=== PATIENT | female | born 1960 | race Caucasian/White ===

== ENCOUNTER 2018-09-02 05:03 | Inpatient (IN) ==
[2018-08-26 15:08] LABS: Appearance,Urine CLEAR; Bilirubin,Urine NEG (NEG); Color,Urine YELLOW; Glucose,Urine (UA) NEGATIVE (NEG); Leukocyte Esterase,Urine NEG /uL (NEG); Protein,Urine NEG (NEG); Specific Gravity,Urine 1.023 (1.000-1.035); Urine Blood NEG mg/dL (<0.03); Urobilinogen,Urine NEG (NEG)
[2018-08-26 15:42] LABS: Basophils # (Auto) 0 K/mcL (0.0-0.3); Basophils % (Auto) 0.5 % (0.0-2.0); Eosinophils # (Auto) 0 K/mcL (0.0-0.7); Eosinophils % (Auto) 0.5 % (0.0-7.0); Granulocytes % (Auto) 63.7 % (38.0-78.0); Lymphocytes # (Auto) 2.2 K/mcL (1.5-4.8); Lymphocytes % (Auto) 24.1 % (15.5-49.0); Mean Cell Volume 96.4 fL (80.0-100.0); Mean Corpuscular HGB Conc 32.3 g/dL (31.0-36.0); Monocytes % (Auto) 11.2 % (1.0-12.0); Platelet Count 287 K/mcL (140-440); RBC 4.68 M/mcL (4.00-5.20); Red Cell Distribution Width 12.6 % (11.5-14.5)
[2018-08-26 15:47] LABS: Blood Urea Nitrogen 16 mg/dl (6-20)
[2018-08-26 17:04] LABS: Estimated Average Glucose(eAG) 108 mg/dL; Hemoglobin A1C 5.4 % HGB (4.0-6.0)
[2018-09-02] MEDS ORDERED: PREGABALIN 75 MG CAPSULE PO SCH (07:00)
[2018-09-02] MEDS ORDERED: oxyCODONE 10 MG TAB.ER.12H PO SCH (07:00)
[2018-09-02] MEDS ORDERED: CELECOXIB 200 MG CAPSULE PO SCH (07:00)
[2018-09-02] MEDS ORDERED: ceFAZolin 2 GM in DEXTROSE 5% IN WATER 50 ML IV SCH (07:00)
[2018-09-02] MEDS ORDERED: HEPARIN 20,000 UNIT/ML VIAL IR ONE (07:08)
[2018-09-02] MEDS ORDERED: DEXAMETHASONE 4 MG/ML VIAL IV ONE (07:40)
[2018-09-02] MEDS ORDERED: PHENYLEPHRINE 10 MG/ML VIAL IV ONE (07:40)
[2018-09-02] MEDS ORDERED: PROPOFOL 200 MG/20 ML VIAL IV ONE (07:40)
[2018-09-02] MEDS ORDERED: LIDOCAINE HCL/PF 100 MG/5 ML SYRINGE IV ONE (07:40)
[2018-09-02] MEDS ORDERED: TRANEXAMIC ACID 1,000 MG/10 ML VIAL IV ONE (07:40)
[2018-09-02] MEDS ORDERED: ONDANSETRON 4 MG/2 ML VIAL IV ONE (07:40)
[2018-09-02] MEDS ORDERED: MIDAZOLAM 2 MG/2 ML VIAL IV ONE (07:40)
[2018-09-02] MEDS ORDERED: FLEETS ADULT ENEMA PR PRN (08:56)
[2018-09-02] MEDS ORDERED: MAGNESIUM HYDROXIDE 30 ML ORAL.SUSP PO PRN (08:56)
[2018-09-02] MEDS ORDERED: HYDROCODONE/APAP 7.5/325MG TABLET PO PRN (08:56)
[2018-09-02] MEDS ORDERED: BISACODYL 10 MG SUPP.RECT PR PRN (08:56)
[2018-09-02] MEDS ORDERED: TRANEXAMIC ACID 1,000 MG/10 ML VIAL IV SCH (08:56)
[2018-09-02] MEDS ORDERED: BENZOCAINE/MENTHOL 1 LOZENGE PO PRN ×2 (08:56→09:21)
[2018-09-02] MEDS ORDERED: KETOROLAC 30 MG/ML VIAL IV PRN (08:56)
[2018-09-02] MEDS ORDERED: POLYETHYLENE GLYCOL 3350 17 GM PACKET PO PRN (08:56)
[2018-09-02] MEDS ORDERED: FLUMAZENIL 0.1 MG/ML ML IV PRN (09:21)
[2018-09-02] MEDS ORDERED: NALOXONE HCL 0.4 MG/ML VIAL IV PRN (09:21)
[2018-09-02] MEDS ORDERED: diphenhydrAMINE 50 MG/ML VIAL IV PRN (09:21)
[2018-09-02] MEDS ORDERED: MEPERIDINE 25 MG/ML SYRINGE IV PRN (09:21)
[2018-09-02] MEDS ORDERED: LACTATED RINGERS 250 ML IV PRN (09:21)
[2018-09-02] MEDS ORDERED: IPRATROPIUM/ALBUTEROL 3 ML AMPUL.NEB NEB PRN (09:21)
[2018-09-02] MEDS ORDERED: PROMETHAZINE 25 MG/ML VIAL IV PRN (09:21)
[2018-09-02] MEDS ORDERED: ACETAMINOPHEN 1,000 MG/100 ML BOTTLE IV ONE (09:21)
[2018-09-02] MEDS ORDERED: KETOROLAC 15 MG/ML VIAL IV PRN (09:21)
[2018-09-02] MEDS ORDERED: ONDANSETRON 4 MG/2 ML VIAL IV PRN (09:21)
[2018-09-02] MEDS: ONDANSETRON 4 MG/2 ML VIAL IV PRN ×2 (09:21→14:08)
[2018-09-02] MEDS: fentaNYL 100 MCG/2 ML VIAL IV PRN ×4 (09:24→09:32)
[2018-09-02] MEDS ORDERED: fentaNYL 100 MCG/2 ML VIAL IV ONE (09:25)
[2018-09-02] MEDS ORDERED: LACTATED RINGERS 1,000 ML IV SCH (09:30)
--- NOTE | 2018-09-02 09:41 | Operative Note ---
DATE OF OPERATION: 09/02/2018 PREOPERATIVE DIAGNOSIS: Left hip severe osteoarthritis. POSTOPERATIVE DIAGNOSIS: Left hip severe osteoarthritis. PROCEDURE PERFORMED: Left anterior total hip arthroplasty placing a DePuy Actis size 4 standard offset femoral stem; a +5, 32 mm delta ceramic head ball; a 50 three-hole [place] cup with a neutral AltrX liner. SURGEON: Mike Cruz M.D. DATA CENTER MANAGER: Noble Michelle PA-C. ANESTHESIA: Spinal plus general. DRAINS: None. SPECIMENS: Femoral head and reamings which were discarded. BLOOD LOSS: 200 mL. POSTOPERATIVE CONDITION: Stable. INDICATIONS FOR SURGERY: This is a 58-year-old female who has had longstanding, progressive worsening, severe bilateral hip pain. She recently underwent a right total hip arthroplasty by me which she was very happy with and wished to proceed on the left. Radiographs had severe [id number] osteoarthritis. FINDINGS AT SURGERY: She did have severe arthritis. Post implantation showed equal leg lengths and offset with components in good position. PROCEDURE IN DETAIL: The patient had been seen preoperatively and informed consent had been obtained after discussion of risks and benefits of surgery. Risks including, but not limited to, bleeding, possibly requiring transfusion; infection, possibly requiring implant removal and prolonged IV antibiotics; injury to nerves, blood vessels, other surrounding structures; anesthetic risks; leg length discrepancy; dislocation; fracture; DVT and pulmonary embolus risks; and the possibility of needing further revision surgery. She understood and wished to proceed. Correct operative site was marked and then patient was given spinal anesthesia. She was then taken to the operating room and LMA general given. She was carefully positioned on the fracture table and then the left hip and groin were carefully prepped and draped in normal sterile fashion, and a time-out was performed verifying patient name, operative site, and plan. Ioban was used to cover all skin surfaces and a standard anterior approach incision was made with a scalpel through skin and subcutaneous tissue. Hemostasis was obtained with Bovie cautery. We continued with the Bovie down to the tensor fascia and then bluntly dissected circumferentially. Irrisept was irrigated and then a ring retractor was placed. Tensor fascia was incised in line with the muscle fibers and then careful blunt dissection was taken medial to the muscle belly. Blunt cobra retractors were placed on the superior and inferior neck. Circumflex vessels were coagulated and cut and vastus fascia split distally. Anterior capsulectomy was performed and capsule releases taken out towards the trochanters. Traction was placed on the leg. We did note she had a calcified labrum which was unstable. We went ahead and used a rongeur to remove this. A corkscrew was then placed in the femoral head. Osteotome was used under fluoro to identify our approximate neck cut trajectory. Oscillating tip saw was used to make the osteotomy and then the femoral head was removed. Acetabulum was exposed. What remained of the labrum was excised circumferentially, as well as soft tissue from the floor. We then started reaming, directly medializing to the tear drop and then increasing reamer size and angle until a 49 reamer got rim ream. We opened a 50 three-hole [place] cup. Acetabulum was irrigated with Irrisept. After a minute we pulse lavaged copiously with saline. We then impacted the cup with the [id number] at approximately 40 degrees of inclination and 25 degrees of anteversion. We did get good press fit. We went ahead and removed the track announcer. We placed a center hole cover. A curved osteotome was used to remove anterior and inferior osteophytes. We then placed a neutral AltrX liner, carefully aligning the tabs and impacting and then carefully verifying all tabs were flush. We then released traction, externally rotated the leg, released capsule around the medial and posterior neck, and then the leg was extended and adducted. We released capsule out towards the greater trochanter, and then after adequate exposure of the proximal femur we again prepped with a box osteotome and an awl to identify the canal. We then used a rongeur and rasp to lateralize and began sequentially broaching with the [id number] up to a size 4. We calcar planed down onto the stem trial and then a standard offset neck trial with a +1, 32 head ball was placed. The hip was reduced with minimal tension. Fluoro was brought in to take AP of the pelvis to verify neutral rotation and AP of the nonoperative and operative hips were taken and overlaid. We appeared to be slightly shortened on the left, so we went ahead and redislocated. We opened a size 4 standard offset stem. We irrigated the femoral canal with Irrisept, after a minute copiously pulse lavaged with saline. The stem was then impacted until it seated down onto the neck cut, and we then opened a +5, 32 mm head ball. The stem was carefully cleaned and dried and then the head ball briskly impacted with multiple blows from the [id number]. We then reduced the hip with better tension this time. Final fluoro images were taken and saved. We irrigated with Irrisept. After a minute we pulse lavaged with saline. A #1 Vicryl running stitches were used to close tensor fascia. Ring retractor was removed. Irrisept was irrigated again and after a minute pulse lavaged with saline. Fat was tacked to fascia with Vicryl and then 2-0 Monocryl for subcutaneous and marycarmen for skin. Xeroform and sterile dressing were applied. The patient was then awakened, extubated, and transferred to recovery in stable condition. BJB:manish Job ID: [id number] Doc ID: [id number] Mike Cruz MD
[2018-09-02] MEDS ORDERED: METHOCARBAMOL 1,000 MG/10 ML VIAL IV ONE (09:51)
--- NOTE | 2018-09-02 10:02 | XRay Report ---
CLINICAL INFORMATION: Status post left total hip arthroplasty TECHNIQUE: Postoperative AP pelvis, AP left hip, crosstable lateral left hip COMPARISON: None. FINDINGS: Status post left total hip arthroplasty. Prosthetic components are in anatomic positions. There is postsurgical soft tissue and intra-articular gas. IMPRESSION: Status post left total hip arthroplasty Interpreted and Authenticated by: Damir Ibrahim 09/02/18
[2018-09-02] MEDS: 0.9 % SODIUM CHLORIDE 1,000 ML IV SCH ×2 (11:07→22:00)
[2018-09-02] MEDS: DOCUSATE SODIUM 100 MG CAPSULE PO SCH ×2 (12:04→20:54)
[2018-09-02] MEDS: ASPIRIN 325 MG ENTERIC COATED TABLET PO SCH ×2 (12:04→20:54)
[2018-09-02] MEDS: 0.9 % SODIUM CHLORIDE 10 ML SYRINGE IV SCH ×2 (13:58→22:02)
[2018-09-02] MEDS: ceFAZolin 1 GM VIAL IV SCH ×2 (15:32→23:12)
--- NOTE | 2018-09-02 16:46 | XRay Report ---
CLINICAL INFORMATION: Left hip replacement TECHNIQUE: 0.3 minutes fluoroscopy utilized by Dr. Cruz. Spot films were obtained. Left total hip arthroplasty performed IMPRESSION: Intraoperative fluoroscopy utilized during left total hip arthroplasty Interpreted and Authenticated by: Damir Ibrahim 09/02/18
[2018-09-02] MEDS: traMADol 50 MG TABLET PO PRN (20:59)
[2018-09-02] MEDS ORDERED: SENNOSIDES 1 TABLET PO SCH (21:00)
[2018-09-03] MEDS: traMADol 50 MG TABLET PO PRN ×2 (04:13→09:26)
[2018-09-03] MEDS: 0.9 % SODIUM CHLORIDE 1,000 ML IV SCH (05:19)
[2018-09-03] MEDS: 0.9 % SODIUM CHLORIDE 10 ML SYRINGE IV SCH ×2 (05:22→06:04)
--- NOTE | 2018-09-03 07:44 | Discharge Summary ---
Providers - Providers Patient information: Note initiated : 09/03/18 at 7:38 am Service Date, if different from initiated Date: [] Patient: Unique Nuñez 58 y/o F admitted on 09/02/18 for Left Total Hip Arthroplasty. Chief Complaint: [] Discharge date: 09/03/18 Hospitalization Hospital course: Pt was admitted for a L direct anterior total hip arthroplasty. Pt underwent the procedure on the day of admission. Pt spent one night on the flooor for IV pain meds, IV abx, and PT. Pt discharged to home with ASA for DVT prophylaxis. Pt will attend out-pt PT. Discharge diagnosis: L hip OA Exam - Exam Clean and dry: Yes Weight bearing status: as tolerated Ortho Discharge - [place] - Patient Instructions Diet: Regular Diet Activity: activity as tolerated Total Hip Protocol: Follow activity instructions as provided by Physical Therapy. Dressing Care: May shower in 2 days - Follow Up Plan Follow Up Appointments: Andrea Michelle PA-C [Physician Contact Printer Dry Film] - 09/17/18 10:00 am Disposition: Home, Self-Care Prognosis: Good Rehab Potential: Good Overall status at discharge: patient is progressing back to baseline - Orders For Discharge Prescriptions: morphine SULFATE [Ms Contin] 30 mg PO Q4-6HP PRN #50 tablet.er PRN Reason: Pain Pending Studies Resuscitation Status Full Code Diet Regular Diet Start FriSep 02 08 Aspirin (Ecotrin) 325 mg PO BID [facility] Last Admin: 09/02/18 20:54 Dose: 325 mg Documented by: Admin: 09/02/18 12:04 Dose: 325 mg Documented by: [email or web address] Docusate Sodium (Colace) 100 mg PO BID [facility] Last Admin: 09/02/18 20:54 Dose: 100 mg Documented by: Admin: 09/02/18 12:04 Dose: 100 mg Documented by: [email or web address] Sodium Chloride (Sodium Chloride 0.9%) 1,000 mls @ 100 mls/hr IV .Q10H [facility] Last Infusion: 09/03/18 06:04 Dose: 0 mls/hr Documented by: Admin: 09/03/18 05:19 Dose: Not Given Documented by: Admin: 09/02/18 22:00 Dose: 100 mls/hr Documented by: Infusion: 09/02/18 21:07 Dose: 100 mls/hr Documented by: Admin: 09/02/18 11:07 Dose: 100 mls/hr Documented by: [facility] Ketorolac Tromethamine (Toradol) 30 mg IV Q6HP PRN PRN Reason: Pain Stop: 09/04/18 08:59 Last Admin: 09/02/18 12:03 Dose: 30 mg Documented by: [facility] Morphine Sulfate (Morphine) 0 mg IV Q1HP PRN PRN Reason: PAIN LEVEL > 6 Last Admin: 09/03/18 06:03 Dose: 2 mg Documented by: Admin: 09/02/18 23:32 Dose: 2 mg Documented by: Admin: 09/02/18 17:43 Dose: 2 mg Documented by: [facility] Admin: 09/02/18 12:48 Dose: 4 mg Documented by: [facility] Admin: 09/02/18 10:14 Dose: 4 mg Documented by: [facility] Ondansetron HCl (Zofran) 4 mg IV Q4HP PRN PRN Reason: Nausea And Vomiting Last Admin: 09/02/18 14:08 Dose: 4 mg Documented by: [email or web address] Admin: 09/02/18 09:21 Dose: 4 mg Documented by: [facility] Senna (Senokot) 2 tab PO HS [facility] Last Admin: 09/02/18 20:54 Dose: 2 tab Documented by: TIFFANIE Sodium Chloride (Saline Flush) 10 ml IV Q8 [facility] Last Admin: 09/03/18 06:04 Dose: 10 ml Documented by: Admin: 09/03/18 05:22 Dose: Not Given Documented by: Admin: 09/02/18 22:02 Dose: Not Given Documented by: Admin: 09/02/18 13:58 Dose: Not Given Documented by: [facility] Tramadol HCl (Ultram) 50 - 100 mg PO Q4HP PRN PRN Reason: Pain Last Admin: 09/03/18 04:13 Dose: 100 mg Documented by: Admin: 09/02/18 20:59 Dose: 100 mg Documented by: TIFFANIE Shift Summary 09/03/18 05:13 Shift Summary by Carline Ramachandran Patient slept well this shift. Denies any nausea this shift. Medicated with Morphine 2mg x1 and Ultram 2 tabs x2 for left hip pain. Up with FWW, SBA to the bathroom. Voids adequately. Refused to ambulate in hallway last night. IV on RFA saline locked. Left hip dressing with small shadow drainage on gauze. Ice pack applied. LALA pumps on. VSS, 96% on RA. Initialized on 09/03/18 05:13 - END OF NOTE
[2018-09-03] MEDS: ASPIRIN 325 MG ENTERIC COATED TABLET PO SCH (09:20)
[2018-09-03] MEDS: DOCUSATE SODIUM 100 MG CAPSULE PO SCH (09:20)
== END 2018-09-03 10:39 | disposition home or self-care (01) | DRG 470 ==
LOC: MEDSUR 05:03
PROVIDERS: ADMIT Orthopaedic Surgery; ATTEND Orthopaedic Surgery

== ENCOUNTER 2019-03-03 09:00 | Inpatient (IN) ==
[2019-02-25 18:10] LABS: Appearance,Urine CLEAR; Bacteria,Urine FEW /hpf (0); Bilirubin,Urine NEG (NEG); Color,Urine YELLOW; Culture Indicated,Urine YES; Glucose,Urine (UA) NEGATIVE (NEG); Ketones,Urine NEG (NEG); Leukocyte Esterase,Urine NEG /uL (NEG); Mucus,Urine FEW /hpf (0); Nitrate,Urine POS (NEG); Protein,Urine NEG (NEG); Specific Gravity,Urine 1.018 (1.000-1.035); Urine Blood NEG mg/dL (<0.03); Urine RBC 1 /hpf (0-1); Urine Squamous Epithelial Cell 1 /hpf (0-4); Urine WBC 5 /hpf (0-4); Urobilinogen,Urine NEG (NEG)
[2019-02-25 19:24] LABS: Basophils # (Auto) 0 K/mcL (0.0-0.3); Basophils % (Auto) 0.3 % (0.0-2.0); Eosinophils # (Auto) 0.1 K/mcL (0.0-0.7); Eosinophils % (Auto) 0.5 % (0.0-7.0); Granulocytes % (Auto) 63.7 % (38.0-78.0); Hematocrit 44.5 % (36.0-48.0); Hemoglobin 14.5 g/dL (12.0-15.0); Lymphocytes # (Auto) 3.1 K/mcL (1.5-4.8); Lymphocytes % (Auto) 27.6 % (15.5-49.0); Mean Cell Volume 99.8 fL (80.0-100.0); Mean Corpuscular HGB Conc 32.6 g/dL (31.0-36.0); Mean Platelet Volume 8.8 fL (7.4-10.4); Monocytes # (Auto) 0.9 K/mcL (0.1-0.9); Monocytes % (Auto) 7.9 % (1.0-12.0); Platelet Count 258 K/mcL (140-440); RBC 4.46 M/mcL (4.00-5.20); Red Cell Distribution Width 13.9 % (11.5-14.5); WBC 11.3 K/mcL (4.5-11.0)
[2019-02-25 19:56] LABS: Blood Urea Nitrogen 14 mg/dl (6-20); Calcium 9.6 mg/dl (8.6-10.4); Carbon Dioxide 26 mmol/L (22-30); Chloride 101 mmol/L (96-108); Glomerular Filtration Rate 96; Glucose 103 mg/dL (70-105)
[2019-02-25 20:00] LABS: Estimated Average Glucose(eAG) 117 mg/dL; Hemoglobin A1C 5.7 % HGB (4.0-6.0)
[~2019-03-03 09:00] MED LIST: 0.9 % SODIUM CHLORIDE 9 ML, KETOROLAC 30 MG, ROPIVACAINE HCL/PF 49.5 ML, EPINEPHrine 0.... IJ SCH; CELECOXIB 200 MG CAPSULE PO SCH; IPRATROPIUM/ALBUTEROL 3 ML AMPUL.NEB NEB PRN; PREGABALIN 75 MG CAPSULE PO SCH; SCOPOLAMINE 1 PATCH PATCH TOPICAL PRN; ceFAZolin 2 GM in DEXTROSE 5% IN WATER 50 ML IV SCH
[2019-03-03] MEDS ORDERED: ONDANSETRON 4 MG/2 ML VIAL ONE (13:36)
[2019-03-03] MEDS ORDERED: DEXAMETHASONE 10 MG/ML VIAL ONE (13:36)
[2019-03-03] MEDS ORDERED: LIDOCAINE HCL/PF 100 MG/5 ML SYRINGE IV ONE (13:36)
[2019-03-03] MEDS ORDERED: KETAMINE 10 MG/ML ML ONE (13:36)
[2019-03-03] MEDS ORDERED: PROPOFOL 200 MG/20 ML VIAL IV ONE (13:36)
[2019-03-03] MEDS ORDERED: FLUMAZENIL 0.1 MG/ML ML IV PRN (15:02)
[2019-03-03] MEDS ORDERED: ONDANSETRON 4 MG/2 ML VIAL IV PRN ×2 (15:02→15:10)
[2019-03-03] MEDS ORDERED: diphenhydrAMINE 50 MG/ML VIAL IV PRN (15:02)
[2019-03-03] MEDS ORDERED: KETOROLAC 30 MG/ML VIAL IV PRN (15:02)
[2019-03-03] MEDS ORDERED: MEPERIDINE 25 MG/ML SYRINGE IV PRN (15:02)
[2019-03-03] MEDS ORDERED: PROMETHAZINE 25 MG/ML VIAL IV PRN (15:02)
[2019-03-03] MEDS ORDERED: BENZOCAINE/MENTHOL 1 LOZENGE PO PRN ×2 (15:02→15:10)
[2019-03-03] MEDS ORDERED: ACETAMINOPHEN 1,000 MG/100 ML BOTTLE IV ONE (15:02)
[2019-03-03] MEDS ORDERED: IPRATROPIUM/ALBUTEROL 3 ML AMPUL.NEB NEB PRN (15:02)
[2019-03-03] MEDS ORDERED: NALOXONE HCL 0.4 MG/ML VIAL IV PRN (15:02)
[2019-03-03] MEDS ORDERED: LACTATED RINGERS 250 ML IV PRN (15:02)
[2019-03-03] MEDS ORDERED: TRANEXAMIC ACID 1,000 MG/10 ML VIAL IV ONE (15:10)
[2019-03-03] MEDS ORDERED: MAGNESIUM HYDROXIDE 30 ML ORAL.SUSP PO PRN (15:10)
[2019-03-03] MEDS ORDERED: BISACODYL 10 MG SUPP.RECT PR PRN (15:10)
[2019-03-03] MEDS ORDERED: FLEETS ADULT ENEMA PR PRN (15:10)
[2019-03-03] MEDS ORDERED: POLYETHYLENE GLYCOL 3350 17 GM PACKET PO PRN (15:10)
--- NOTE | 2019-03-03 15:10 | Brief Operative Note ---
Date of procedure: 03/03/19 Pre-op diagnosis: Left knee severe OA Post-op diagnosis: same Procedure: Left robotic assisted total knee arthroplasty Grafts/Implants: Yes ([place] Triathlon CR 2 femur, 3 tibia, 11mm CR insert, 31 patella) Anesthesia: spinal, GLMA Findings: severe arthritis Complications: none Surgeon: Mike Cruz Manager Hiv: Andrea Michelle Estimated blood loss (cc): 30 Specimens Removed/Pathology: none sent Condition: stable Disposition: PACU
[2019-03-03] MEDS ORDERED: traMADol 50 MG TABLET PO PRN (15:14)
[2019-03-03] MEDS ORDERED: LACTATED RINGERS 1,000 ML IV SCH (15:15)
--- NOTE | 2019-03-03 15:51 | Operative Note ---
DATE OF OPERATION: 03/03/2019 PREOPERATIVE DIAGNOSIS: Left knee severe osteoarthritis. POSTOPERATIVE DIAGNOSIS: Left knee severe osteoarthritis. PROCEDURE PERFORMED: Left robotic-assisted total knee arthroplasty placing a [place] Triathlon size 2 cruciate retaining femoral component, size 3 tibial baseplate, an 11 mm X3 tibial insert with a 31 mm patellar button. SURGEON: Mike Cruz M.D. RAILWAY SIGNAL ELECTRICIAN: Noble Michelle PA-C. The PA's assistance was required for the safe and efficient completion of the entire case. This provider's expertise and technical skill were required throughout the case. The PA assisted with preoperative coordination, intraoperative retraction, wound closure, dressing and splint application, as well as postoperative documentation and care coordination. ANESTHESIA: Spinal plus general. DRAINS: None. SPECIMENS: Bone cuts which were discarded. BLOOD LOSS: Less than 30 mL. COMPLICATIONS: None. POSTOPERATIVE CONDITION: Stable. INDICATIONS FOR SURGERY: This is a 58-year-old female with progressive worsening knee pain. Radiographs showed [id number]-[id number]-spip osteoarthritis. FINDINGS AT SURGERY: She had severe arthritis, multi-compartment. Post-implantation showed satisfactory limb alignment and stability. PROCEDURE IN DETAIL: The patient had been seen preoperatively and informed consent had been obtained after discussion of risks and benefits of surgery. Risks including, but not limited to, bleeding, possibly requiring transfusion; infection, possibly requiring implant removal and prolonged IV antibiotics; injury to nerves, blood vessels, and other surrounding structures; anesthetic risks; incomplete or no resolution of symptoms; stiffness; swelling; pain; instability; clunking; DVT and pulmonary embolus risks; and the possibility of needing further revision joint surgery. She understood these risks and wished to proceed. Correct operative site was marked and then patient was given spinal anesthesia. She was then taken to the operating room and LMA general given. The left lower extremity was then carefully prepped and draped in normal sterile fashion, and a time-out was performed verifying patient name, operative site, and plan. Ioban was used to cover all skin surfaces and then Esmarch was used to exsanguinate the extremity and tourniquet was inflated to 300 mmHg. Midline incision was made with a scalpel through skin and subcutaneous tissue and then hemostasis obtained with Bovie cautery. Irrisept was irrigated and then a medial parapatellar arthrotomy made, and a subperiosteal exposure was done of the anterior medial tibia. Anterior horns of the menisci were removed. ACL was transected. We freehand cut the patella, first measuring pre-thickness. Post-resection was 10 mm less. We placed a cut protector. We then made two stab incisions over the femur and two over the tibia and bicortical pins were placed and then the arrays were connected. We then did our hip center of rotation check, followed by green probe to the medial and lateral malleoli. We also did double-checks of our checkpoints with the green probe. Blue probe was used to do our mapping and then a rongeur was used to remove osteophytes. We checked our flexion-extension gaps. She had a very large lateral gap in both flexion and extension. We placed 3 degrees of varus on the tibia and 1 on the femur. We checked patellar tracking. This was good. Our medial gaps were 17 mm in flexion and extension. We then used the robotic arm to make our bone cuts. The tibia was sized to a 3 and externally rotated as bone coverage would allow. This was pinned into place and a boss reamer and keel punch used to prepare. We then placed a keeled tibial trial. The femur was elevated and a curved osteotome used to remove posterior osteophytes. We then placed a size 2 femoral trial on, flush with the lateral cortex and then pinned this into place. Peg holes were drilled and then 9 insert trial was impacted. The knee was taken into extension. She went down to about 2 degrees short of full extension without any pressure. We went ahead and prepared the patella, then using a 31 medialized maximally. We drilled the holes and then a trial was placed. A lateral facetectomy was performed. A thickness check was within a millimeter of pre-resection thickness. We checked our patellar tracking. It was good. There was not significant tilt or subluxation. We then went ahead and removed the trial implants. Definitive implants were opened. We irrigated with Irrisept. Antibiotic Palacos was mixed. After a minute we pulse lavaged copiously with saline and then used the CO2 gun to clean and dry the cancellous bone surfaces. We then cemented the tibia and excess cement removed. We then cemented the femur and excess cement removed. A 9 insert trial was placed and the knee was taken into extension and the patellar button was cemented and excess cement removed. While cement hardened, we removed our checkpoints. We removed our arrays and our pins. We filled the joint with Irrisept and then I injected pain cocktail into the pericapsular and subcutaneous tissues. After cement had fully hardened, we flexed the knee up and did inspection and removal of any remaining cement with an osteotome. We injected pain cocktail into the posteromedial capsule after removing and tibial insert trial. Due to near full extension and laxity laterally, I went ahead and up-sized her to an 11 CR insert which was opened. This was impacted. This improved stability some more. We went ahead and then and filled the joint with Irrisept, after waiting a minute we pulse lavaged with saline, and then the knee was placed in 45 degrees of flexion. Interrupted #2 FiberWire [id number] were used around the patella superior quadrant, interrupted #1 Vicryl [id number] around the inferior quadrant. Running #1 Vicryl was used for patellar tendon and quad tendon. Final Irrisept irrigation was done and after a minute final pulse lavage with saline. A 2-0 Monocryl was used for subcutaneous and marycarmen for skin. Xeroform and sterile dressing were applied. Tourniquet was released. The patient was awakened, extubated, and transferred to recovery in stable condition. BJB:manish Job ID: [id number] Doc ID: [id number] Mike Cruz MD
[2019-03-03] MEDS ORDERED: HYDROmorphone 2 MG/ML VIAL IV ONE ×2 (16:02→16:16)
[2019-03-03] MEDS ORDERED: LORazepam 2 MG/ML VIAL IV ONE (16:02)
--- NOTE | 2019-03-03 16:04 | XRay Report ---
HISTORY: Postop left knee replacement FINDINGS: There is a well-positioned left total knee prosthesis. There is no fracture or abnormal soft tissue calcifications around the joint. Impression: well-positioned left knee prosthesis Interpreted and Authenticated by: Reilly aLgos 03/03/19
[2019-03-03] MEDS ORDERED: HYDROmorphone 2 MG/ML VIAL ONE (16:05)
[2019-03-03] MEDS: 0.9 % SODIUM CHLORIDE 1,000 ML IV SCH (17:25)
[2019-03-03] MEDS ORDERED: LORazepam 2 MG/ML VIAL IV PRN (19:48)
[2019-03-03] MEDS ORDERED: ASPIRIN 325 MG ENTERIC COATED TABLET PO SCH (21:00)
[2019-03-03] MEDS ORDERED: SENNOSIDES 1 TABLET PO SCH (21:00)
[2019-03-03] MEDS: DOCUSATE SODIUM 100 MG CAPSULE PO SCH (21:10)
[2019-03-03] MEDS: ceFAZolin 1 GM VIAL IV SCH (21:10)
[2019-03-03] MEDS: 0.9 % SODIUM CHLORIDE 10 ML SYRINGE IV SCH (21:11)
[2019-03-03] MEDS: ASPIRIN 325 MG ENTERIC COATED TABLET PO SCH (21:11)
[2019-03-03] MEDS: HYDROmorphone 2 MG/ML VIAL IV PRN (21:12)
[2019-03-04] MEDS: morphine 15 MG TABLET PO PRN ×3 (03:02→13:02)
[2019-03-04] MEDS: 0.9 % SODIUM CHLORIDE 1,000 ML IV SCH ×2 (03:03→09:52)
[2019-03-04] MEDS: ceFAZolin 1 GM VIAL IV SCH (04:54)
[2019-03-04] MEDS: 0.9 % SODIUM CHLORIDE 10 ML SYRINGE IV SCH ×2 (04:59→14:42)
--- NOTE | 2019-03-04 07:42 | Discharge Summary ---
Providers - Providers Patient information: Note initiated : 03/04/19 at 7:39 am Service Date, if different from initiated Date: [] Patient: Unique Nuñez 58 y/o F admitted on 03/03/19 for Left Total Knee Arthroplasty Mike. Chief Complaint: [] Discharge date: 03/04/19 Hospitalization Hospital Course: Pt was admitted for a L TKA. Pt admitted on the day of procedure. Pt transferred to the floor for IV pain meds, IV abx and PT. Pt discharged to home on post-op day1. Will f/u in 2weeks. Will take ASA for DVT prophylaxis. Discharge diagnosis: L knee OA Exam - Exam Clean and dry: Yes Weight bearing status: as tolerated Ortho Discharge - [place] - Patient Instructions Diet: Regular Diet Activity: activity as tolerated, weight bearing as tolerated Total Knee Protocol: For Total Knee: Start ROM CATRACHO with stationary bike or rocking chair. Work on gaining full extension of knee. Posterior dislocation precautions provided. Hip abductor strengthening and gait training instructions provided. Apply Cryocuff as instructed. Dressing Care: May shower in 2 days - Follow Up Plan Disposition: Home, Self-Care Prognosis: Good Rehab Potential: Good - Orders For Discharge Prescriptions: traMADol [Ultram] 1 - 2 tab PO Q6HP PRN #90 tab PRN Reason: Pain Prescription Printed Pending Studies Resuscitation Status Full Code Diet Consistent Carbohydrate Diet Start FriMar 03 1511 Aspirin (Ecotrin) 325 mg PO BID [facility] Last Admin: 03/03/19 21:11 Dose: 325 mg Documented by: HELGA Docusate Sodium (Colace) 100 mg PO BID [facility] Last Admin: 03/03/19 21:10 Dose: 100 mg Documented by: HELGA Hydromorphone HCl (Dilaudid) 0.5 - 2 mg IV Q2HP PRN; Protocol PRN Reason: PAIN LEVEL 3-6 Last Admin: 03/03/19 21:12 Dose: 2 mg Documented by: HELGA Sodium Chloride (Sodium Chloride 0.9%) 1,000 mls @ 100 mls/hr IV .Q10H [facility] Last Admin: 03/04/19 03:03 Dose: 100 mls/hr Documented by: Infusion: 03/04/19 03:03 Dose: 100 mls/hr Documented by: Admin: 03/03/19 17:25 Dose: 100 mls/hr Documented by: CB Morphine Sulfate (Morphine) 15 mg PO Q4-6HP PRN; Protocol PRN Reason: PAIN LEVEL 3-6 Last Admin: 03/04/19 03:02 Dose: 15 mg Documented by: HELGA Ondansetron HCl (Zofran) 4 mg IV Q4HP PRN PRN Reason: Nausea And Vomiting Last Admin: 03/04/19 03:46 Dose: 4 mg Documented by: HELGA Senna (Senokot) 2 tab PO HS [facility] Last Admin: 03/03/19 21:11 Dose: 2 tab Documented by: HELGA Sodium Chloride (Saline Flush) 10 ml IV Q8 [facility] Last Admin: 03/04/19 04:59 Dose: Not Given Documented by: Admin: 03/03/19 21:11 Dose: Not Given Documented by: HELGA Shift Summary 03/04/19 04:56 Shift Summary by Rhianna Pickett The patient was sedated but arousable to verbal and tactile stimuli at change of shift post operatively, new orders received for Dilaudid 0.5 to 2 mg IVP every 2 hours and Lorazepam 1 mg every 6 hours as needed from surgeon for symptom management. Pain has been rated 6/10 when up to void at bedside via commode and 1 person assist with FWW and steady gait, medicated at 0345 for nausea/emesis episode, VSS on 3L via oxy mask. She was given IV Dilaudid once and PO morphine once, oxygen was decreased from 3 LPM to 2 LPM at 0500 and Sp02 98%. She is alert and oriented times four, using call light appropriately and has a 18 gauge infusing NS at 100 hour in her left hand. Initialized on 03/04/19 04:56 - END OF NOTE
[2019-03-04] MEDS: HYDROmorphone 2 MG/ML VIAL IV PRN (07:43)
[2019-03-04] MEDS: ASPIRIN 325 MG ENTERIC COATED TABLET PO SCH (08:47)
[2019-03-04] MEDS: DOCUSATE SODIUM 100 MG CAPSULE PO SCH (08:48)
[2019-03-04] MEDS ORDERED: ASCORBIC ACID 500 MG TABLET PO SCH (09:00)
[2019-03-04] MEDS ORDERED: MAGNESIUM OXIDE 400 MG TABLET PO SCH (09:00)
[2019-03-04] MEDS ORDERED: CYANOCOBALAMIN (VITAMIN B-12) 500 MCG TABLET PO SCH (09:00)
[2019-03-04] MEDS ORDERED: FISH OIL 1,000 MG CAPSULE PO SCH (09:00)
== END 2019-03-04 16:15 | disposition home or self-care (01) | DRG 470 ==
LOC: MEDSUR 09:00
PROVIDERS: ADMIT Orthopaedic Surgery; ATTEND Orthopaedic Surgery